=== PATIENT | male | born 1950 | race Caucasian/White ===

== ENCOUNTER 2020-11-09 15:25 | Emergency (ER) | payer MEDICARE, SELFPAY ==
[2020-11-09] VITALS (7 sets, daily range): BP systolic 90–117; BP diastolic 60–74; PULSE 84–96; RESP 14–24; TEMP 36.7; O2SAT 93–96
--- NOTE | 2020-11-09 15:15 | RT.EKG_ITS ---
APPROVED REPORT Exam: Resting ECG Reason for Exam: chest pain Patient Location: E HR:86 bpm ECG Measurements Heart Rate 86 AXIS GA 144 P 63 QRSd 93 QRS 63 QT 316 T 106 QTc 379 Conclusion Sinus rhythm...normal P axis, V-rate 60- 99 Anterior infarct, old...Q >40mS, abnormal ST-T, V2-V5 st elevations in inferior leads with depressions in v5-v6
--- NOTE | 2020-11-09 15:42 | ED.GENADUL_ITS ---
Discharge Plan Disposition Patient Disposition: AGAINST MEDICAL ADVICE Condition: Serious Discharge Details Clinical Impression: Chest pain, Abnormal ECG, Elevated troponin I level Primary Care Provider: Sonya,Local ED Provider: Zander Blakely Discharge Instructions Instructions: Against Medical Advice (ED) Additional Instructions: You are leaving AGAINST MEDICAL ADVICE and may have life-threatening or lifestyle modifying disease that would go undiagnosed and untreated and worsen. Please return to the emergency department at any time for further treatment as recommended. Please call you primary care physician and musical instrument mechanic JULIO to arrange timely followup. Discharge Data Discharge Date/Time-TO BE ENTERED AT DEPARTURE: 11/09/20 17:52 Medical Decision Making <Asif Chisholm MD - Last Filed: 11/09/20 16:11> 70 yo male who had 2 stents [place] [facility] [place] being transferred from the [facility] for an [place], who was discharged earlier today, comes in with chest pain prior to arrival. He is not able to provide any other medical history, and is not sure what medications he takes. He is staying with his son who lives around here and within the last hour developed left anterior chest pressure. Denies diaphoresis or vomit. He took two nitro prior to arrival and currently denies any pain or pressure or dyspnea. Denies any cough or fevers or abdomen pain. He is in no distress on exam speaking clearly with clear lung sounds. His ecg shows st elevation in the inferior leads with reciprocal depression in v5-v6, no olds to compare to. Will obtain labs and consult with cardi[place] [facility] [place], given he is pain free do not feel lytics indicated at this time. spoke with cardiology Dr. Faye at [facility] [place] who reviewed the ekg and the st elevation in the inferior leads is unchanged from prior ekg they have in their system. She recommends aspirin and will consult with her fellow patient signed out to oncoming provider pending call back from [facility] cardiology Differential Diagnosis Differential Diagnosis: pericarditis, stemi, acs ECG Data Attestation: I personally reviewed and interpreted this ECG (s) as follows: Prior ECG tracings: not available for review Interpretation: sinus rhythm rate of 86, pr 144, st elevations in inferior leads with depressions in v5-v6 <Zander Blakely MD - Last Filed: 11/14/20 22:16> [id number]??received signout from Dr. Chisholm with plan to follow-up on labs, chest x- ray, discussion with [facility] [place] cardiology regarding ongoing management of the patient. Labs reviewed and troponin is elevated at 13.1 Chest x-ray reviewed and interpreted by radiology: IMPRESSION: No acute pulmonary findings on this single AP portable view of the chest. Previous sternotomy.? No pulmonary edema I spoke with cardiology team at [facility] [place] and updated them with diagnostic labs including elevated troponin. They note that this troponin is improved from recent post catheterization levels. They recommend trending troponin I do not feel the patient is to be transferred at this time. Recommend medical management. I spoke with the patient about diagnostics and treatment plan to admit with likely transfer to [place] and he is declining treatment plan as outlined and wishes to leave AGAINST MEDICAL ADVICE. I reiterated my concerns to the patient and explained the risks of leaving prior to completion of workup and treatment. I specifically emphasized the possibility of life-threatening or lifestyle modifying disease that would not be appropriately treated if they leave. Patient verbalized understanding of my concerns and the potential for life threatening or lifestyle modifying disease. Patient has capacity to make informed decision. I again explained my concerns and urged the patient to stay for treatment as outlined. Patient continued to refuse. I then discussed potential less ideal alternatives to diagnostic/treatment plan as outlines and patient refused. I recommended that the patient follow-up with primary care physician and his musical instrument mechanic JULIO or return to the Emergency Department at any time for further treatment. HPI <Asif Chisholm MD - Last Filed: 11/09/20 16:11> General Mode of arrival: ambulatory . Date/Time Provider Initiated Documentation: 11/09/20 15:30 . Limitations to Documentation: no limitations . Information obtained by: patient . History of Present Illness 70 year old M presents to the emergency department with the chief complaint of chest pain, described as moderate, with intensity rated at 5. Quality is described as other (pressure), and is localized to the chest. Patient reports no radiation. Patient started experiencing this hour(s) (1) and it has been now resolved. other things that improve symptom(s), (nitro) No exacerbating factors reported . Patient notes no other symptoms.. Related Data Allergies Allergy/AdvReac Type Severity Reaction Status Date / Time No Known Allergies Allergy Unverified 11/09/20 15:56 General Stated Complaint: Chest Pain PADMINI: 2 Review of Systems <Asif Chisholm MD - Last Filed: 11/09/20 16:11> All systems reviewed & are unremarkable except as noted in HPI and below Constitutional Constitutional: Denies chills, Denies fever(s) and Denies weakness Cardiovascular Cardiovascular: Denies dyspnea Respiratory Respiratory: Denies cough and Denies dyspnea Gastrointestinal Gastrointestinal: Denies abdominal pain, Denies nausea and Denies vomiting Musculoskeletal Musculoskeletal: Denies joint swelling Neurologic Neurologic: Denies weakness PFS <Asif Chisholm MD - Last Filed: 11/09/20 16:11> Social History Smoking/Tobacco Use Status: Former Tobacco Use Smoking risk assessment performed?: Yes Alcohol Intake: never Drug use: Never Substance use type: does not use Do you feel safe at home: Yes Do you feel safe in your relationship?: Yes Exam <Asif Chisholm MD - Last Filed: 11/09/20 16:11> Const General: no acute distress Orientation: alert HENFL Head: normal to inspection Ears: external ears normal General nose exam: external nose normal Mouth: moist mucous membranes Eyes General: appearance normal, both eyes and all related structures Neck Neck: normal visual inspection Chest Chest: normal inspection of the chest and no tenderness Resp Effort & Inspection: normal respiratory effort and able to speak in complete sentences Cardio Rate: regular rate GI Palpation: soft and nontender Skin General skin exam: no rashes or lesions noted Neuro General: patient alert and patient oriented x3 Extrem General: normal to inspection Psych Mental Status: mental status grossly normal Course <Asif Chisholm MD - Last Filed: 11/09/20 16:11> Vital Signs Vital signs: Vital Signs Temperature 36.7 C 11/09/20 15:29 Pulse 92 H 11/09/20 15:29 Respiratory Rate 14 11/09/20 15:29 Blood Pressure 112/60 11/09/20 15:29 Pulse Oximetry 96 11/09/20 15:29 Temperature 36.7 C 11/09/20 15:29 Temperature Source Temporal Artery Scan 11/09/20 15:29 Pulse 92 H 11/09/20 15:29 Respiratory Rate 14 11/09/20 15:29 Respiratory Effort Non-Labored 11/09/20 15:36 Blood Pressure 112/60 11/09/20 15:29 Blood Pressure Position Supine 11/09/20 15:29 Pulse Oximetry 96 11/09/20 15:29 Oxygen Delivery Method Room Air 11/09/20 15:29 Oxygen Flow Rate 0 11/09/20 15:29 Pain Level 0 11/09/20 15:29
--- NOTE | 2020-11-09 15:45 | DI.RAD_ITS ---
Exam(s) XR PORTABLE CHEST AP EXAM: XR PORTABLE CHEST AP CLINICAL HISTORY: chest pain. TECHNIQUE: 2D digital imaging was performed. COMPARISON: None FINDINGS: Chest leads in place. Sternotomy wires noted. Heart size upper normal. Mediastinum not widened. T here is widening of the right AC joint probably related to prior surgery. Lungs are clear. No infiltrates nor obvious pleural effusions. There is no pneumothorax. No pulmonary edema. IMPRESSION: No acute pulmonary findings on this single AP portable view of the chest. Previous sternotomy. No pulmonary edema DATA REPOSITORY: RADIATION DOSE DELIVERED: All CT scans at this facility use at least one of these dose optimization techniques: automated exposure control; mA and/or kV adjustment per patient size (includes targeted e xams where dose is matched to clinical indication); or iterative reconstruction.
[2020-11-09 15:53] LABS: Abs Immature Grans 0.05 10^3/uL (0.0-0.06); Absolute Basophil Count 0.06 10^3/uL (0.0-0.2); Absolute Monocyte Count 1.22 10^3/uL (0.1-0.8); Absolute Neutrophil Count 7.79 10^3/uL (1.2-6.7); Basophils % 0.5; Eosinophils % 1.7; HCT 38.8 % (40.0-50.0); HGB 12.5 g/dL (13.5-17.5); Immature Grans % 0.4; Lymphocytes % 19.1; MCH 30.3 pg (27.0-33.0); MCHC 32.2 % (32.0-36.0); MCV 93.9 fL (80-95); MPV 9.2 fL (8.0-11.0); Monocytes % 10.6; Neutrophils % 67.7; Nucleated RBC 0 %; Platelet Count 287 10^3/uL (130-400); RBC 4.13 10^6/uL (4.36-5.78); RDW 13.6 % (11.8-14.1); RDW-SD 47.5 fL
[2020-11-09 16:07] LABS: INR 1.1 (0.9-1.1); PTT Activated 24.6 sec (21.0-27.5); Prothrombin Time 10.9 sec (9.3-11.0)
[2020-11-09 16:09] LABS: ALT 37 U/L (16-63); AST 77 U/L (15-37); Albumin 3.3 g/dL (3.4-5.0); Alkaline Phosphatase 69 U/L (46-116); Anion Gap 11.1 mmol/L (3-11); BUN 15 mg/dL (7-18); Bilirubin, Total 0.6 mg/dL (0.2-1.0); CO2 27.9 mmol/L (21.0-32.0); CREATININE 1.4 mg/dL (0.70-1.30); Calcium 7.9 mg/dL (8.5-10.1); Chloride 97 mmol/L (98-107); Estimated GFR 49.82 (mL/min/1.73m2); Glucose 152 mg/dL (74-106); Magnesium 2.1 mg/dL (1.8-2.4); Potassium 3.9 mmol/L (3.5-5.1); Sodium 136 mmol/L (136-145); Total Protein 7.4 g/dL (6.4-8.2)
[2020-11-09] MEDS: Aspirin 81 MG CHEW 243 MG CH (16:11)
[2020-11-09] MEDS: ALPRAZolam 0.25 MG TAB PO (17:54)
[2020-11-09 18:06] LABS: Troponin I 11.57 ng/mL (<0.06)
== END 2020-11-09 17:52 | disposition left against medical advice (07) ==
PROVIDERS: Emergency Medicine; Emergency Provider Student in an Organized Health Care Education/Training Program
DX: R07.9 Chest pain, unspecified (principal); R94.31 Abnormal electrocardiogram [ECG] [EKG]; R79.89 Other specified abnormal findings of blood chemistry; Z53.29 Procedure and treatment not carried out because of patient's decision for other reasons; Z95.5 Presence of coronary angioplasty implant and graft
CPT/HCPCS: 80053; 93005; 99284; 71045; 83735; 84484; 85025; 85610; 85730; 93010